=== PATIENT | female | born 2000 | race Caucasian/White ===

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

== ENCOUNTER 2020-05-01 19:01 | Outpatient (REF) | payer BC, SELFPAY ==
[2020-05-03 13:42] LABS: Patient Race White; SARS-CoV-2 RNA Undetected (Undetected); SARS-CoV-2 Specimen Source Nasal
== END 2020-05-01 19:21 ==
LOC: NCHCN 19:01
PROVIDERS: PCP Physician Assistant Medical; Visit Provider Physician Assistant Medical
DX: R09.81 Nasal congestion (principal)
CPT/HCPCS: U0003

== ENCOUNTER 2021-04-04 21:18 | Outpatient (REF) | payer BC, SELFPAY ==
--- NOTE | 2021-04-04 17:00 | PAPFT_PTH ---
PATIENT: Starla Wiggins LOC: NCN #:[id number] AGE/SX: 20/F ROOM: RE04/04/[address]: Zaki Schneider : 2000 BED: DIS: 04/04/2021 SPEC #: [id number] RECD: 04/05/21 13:16 STATUS: DAHLIA REGabe #: [id number] GIANLUCA: 04/04/21 17:[address]: Zaki Schneider DEPT: [facility] Cytology RECD BY: Jennifer Rockwell Tissues: 1 - CX/ENDOCX FOR PAP SMEARS Procedures: PAP THIN PREP/[facility] Screening Comments: [id number]
[2021-04-04 21:15] LABS: Calculated LDL 162 mg/dL (<100); Cholesterol 243 mg/dL (<200); Glucose 83 mg/dL (74-106); HDL Cholesterol 50 mg/dL (40-60); Triglyceride 159 mg/dL (<150)
== END 2021-04-04 21:19 | disposition home or self-care (01) ==
LOC: NCHCN 21:18
PROVIDERS: PCP Physician Assistant Medical; Visit Provider Physician Assistant Medical
DX: Z12.4 Encounter for screening for malignant neoplasm of cervix (principal); Z00.8 Encounter for other general examination
CPT/HCPCS: 80061; 82947; 88142

== ENCOUNTER 2021-06-25 21:29 | Outpatient (REF) | payer BC, SELFPAY ==
[2021-06-25 21:37] LABS: Abs Immature Grans 0.03 10^3/uL (0.0-0.06); Absolute Basophil Count 0.07 10^3/uL (0.0-0.2); Absolute Lymphocyte Count 3.39 10^3/uL (1.2-3.4); Basophils % 0.5; Eosinophils % 4.8; HCT 35.5 % (36.0-46.0); Immature Grans % 0.2; Lymphocytes % 24.8; MCH 29.5 pg (27.0-33.0); MCHC 33.8 % (32.0-36.0); MCV 87.2 fL (80-95); MPV 10.3 fL (8.0-11.0); Monocytes % 7.2; Neutrophils % 62.5; Nucleated RBC 0 %; Platelet Count 433 10^3/uL (130-400); RBC 4.07 10^6/uL (3.93-5.22); RDW 13.2 % (11.7-14.6); RDW-SD 39.7 fL; WBC 13.66 10^3/uL (4.4-10.8)
[2021-06-25 21:46] LABS: ALT 19 U/L (14-59); AST 13 U/L (15-37); Alkaline Phosphatase 110 U/L (46-116); Anion Gap 10.3 mmol/L (3-11); BUN 7 mg/dL (7-18); Bilirubin, Total 0.2 mg/dL (0.2-1.0); CO2 24.7 mmol/L (21.0-32.0); CREATININE 0.9 mg/dL (0.55-1.02); Calcium 9.6 mg/dL (8.5-10.1); Chloride 103 mmol/L (98-107); Glucose 79 mg/dL (74-106); Potassium 4.2 mmol/L (3.5-5.1); Sodium 138 mmol/L (136-145); Total Protein 7.8 g/dL (6.4-8.2)
[2021-06-25 21:48] LABS: Absolute Eosinophil Count 0.66 10^3/uL (0.0-0.7); Absolute Monocyte Count 0.98 10^3/uL (0.1-0.8); Absolute Neutrophil Count 8.54 10^3/uL (1.2-6.7)
== END 2021-06-25 21:30 | disposition home or self-care (01) ==
LOC: LBN 21:29
PROVIDERS: PCP Physician Assistant Medical; Visit Provider Family Medicine
DX: U07.1 COVID-19 (principal)
CPT/HCPCS: 80053; 85025

== ENCOUNTER 2021-06-26 12:42 | Outpatient (CLI) | payer BC, SELFPAY ==
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
== END 2021-06-26 13:02 ==
PROVIDERS: PCP Physician Assistant Medical; Visit Provider Family Medicine
DX: U07.1 COVID-19 (principal); J98.4 Other disorders of lung
CPT/HCPCS: 71046

== ENCOUNTER 2023-02-12 20:14 | Outpatient (REF) | payer BC, SELFPAY ==
[2023-02-12 20:58] LABS: Source Nasal/Nares
[2023-02-12 21:52] LABS: COVID-19 PCR Negative (Negative)
== END 2023-02-12 20:15 | disposition home or self-care (01) ==
LOC: LBN 20:14
PROVIDERS: PCP Physician Assistant Medical; Visit Provider Physician Assistant Medical
DX: J02.9 Acute pharyngitis, unspecified (principal); Z20.822 Contact with and (suspected) exposure to COVID-19
CPT/HCPCS: 87635; 87070

== ENCOUNTER 2023-09-03 23:03 | Emergency (ER) | payer BC, SELFPAY ==
[2023-09-03] VITALS (53 sets, daily range): BP systolic 107–156; BP diastolic 58–87; PULSE 80–117; RESP 11–30; TEMP 36.7; O2SAT 90–100
--- NOTE | 2023-09-03 23:00 | RT.EKG_ITS ---
APPROVED REPORT Exam: Resting ECG Reason for Exam: chest pain Patient Location: E HR:103 bpm ECG Measurements Heart Rate 103 AXIS WV 161 P 41 QRSd 86 QRS 72 QT 357 T -11 QTc 467 Conclusion Sinus tachycardia 103 normal intervals no stemi
[2023-09-03] MEDS: Ketorolac 10 MG TAB PO (23:26)
[2023-09-03] MEDS: ALPRAZolam 0.5 MG TAB 1 MG PO (23:26)
--- NOTE | 2023-09-03 23:27 | ED.GENADUL_ITS ---
Discharge Plan Disposition Patient Disposition: Home Condition: Stable Discharge Details Clinical Impression: Chest pain Primary Care Provider: Zaki Schneider ED Provider: Jean Burnett Home Meds and New Rx's Prescriptions: No Action atomoxetine 25 mg capsule PO Patient Comments: TAKE ONE CAPSULE BY MOUTH EVERY MORNING Discharge Instructions Instructions: Chest Pain (ED) Additional Instructions: monitor symptoms and if there is significant worsening follow up with your PCP or return to the ED HPI General Date/Time Provider Initiated Documentation: 09/03/23 23:16 . Limitations to Documentation: no limitations . Information obtained by: patient . HPI Narrative: 23-year-old female with past medical history of anxiety presents for evaluation of chest pain. Reports acute onset pain about 1 hour ago. Pain substernal and pressure. Not associated with nausea, diaphoresis or significant shortness of breath. Has never had pain like this before. Denies hormone use, does not smoke, no history of early cardiac . No recent surgeries or long travel Related Data Home Medications Medication Instructions Recorded Confirmed atomoxetine 25 mg capsule mg PO 09/03/23 Allergies Allergy/AdvReac Type Severity Reaction Status Date / Time animal dander Allergy Intermediate Runny Unverified 09/03/23 23:15 nose, watery eyes house dust Allergy Intermediate Sneezy,Itch Unverified 09/03/23 23:15 y mold Allergy Intermediate Congestion, Unverified 09/03/23 23:15 Itchy General Stated Complaint: Chest Pain DORINA: 3 Exam Narrative Exam Narrative: Review of Systems: All systems reviewed & are unremarkable except as noted in HPI and below Well-developed, no acute distress NCAT PERRL, normal conjunctiva RRR, no murmur no chest wall tenderness Unlabored respiratory effort, CTAB Nondistended abdomen Extremities w/o deformity, no cyanosis, no edema No rashes or lesions. no focal neurologic deficits anxious, tearful Course Vital Signs Vital signs: Vital Signs Temperature 36.7 C 09/03/23 23:06 Pulse 112 H 09/03/23 23:06 Respiratory Rate 20 09/03/23 23:06 Blood Pressure 156/87 H 09/03/23 23:06 Pulse Oximetry 100 09/03/23 23:06 Temperature 36.7 C 09/03/23 23:06 Pulse 112 H 09/03/23 23:06 Respiratory Rate 20 09/03/23 23:10 Respiratory Effort Short of Breath 09/03/23 23:10 Respiratory Depth Normal 09/03/23 23:10 Respiratory Pattern Normal 09/03/23 23:10 Blood Pressure 156/87 H 09/03/23 23:06 Pulse Oximetry 100 09/03/23 23:06 Pain Level 2 09/03/23 23:06 Medical Decision Making Emergent evaluation of chest pain. Patient denies no risk factors for ACS. Her EKG does not demonstrate concerning changes. Have a low suspicion for cardiac chest pain. She is PERC negative and low risk Wells. She does not want an IV and I do not feel that blood work would be beneficial at this time. Will give medication and reassess some improvement with initial meds. Reporting a more esophageal type pain now. Reports it, comes and goes. Still does not want lab work. GI medications given. She did report some relief after this. On reassessment. She states she is ready to go home now. I think that this is a safe plan. Patient is able to go home. In good condition. Strict return precautions advised. Recommended close follow-up with PCP. Medical Records Medical records reviewed: Yes I reviewed the patient's medical records. Lab Data Lab results reviewed: Yes I reviewed the patient's lab results. Quality:SDOH Health Related Social Needs: No Data to Display [facility] All Active Problems (Updated 09/04/23 @ 00:38 by Jean Burnett MD) Chest pain (Acute) Sprain of cervical neck (Acute) Social History Smoking/Tobacco Use Status: Never Smoking risk assessment performed?: Yes Drug use: Daily Substance use type: marijuana Do you feel safe at home: Yes PAWSS Have you Been Recently Intoxicated or Drunk Within the Last 30 days?: No Have you Ever Experienced Previous Episodes of Alcohol Withdrawal?: No Have you ever Experienced Withdrawal Seizures?: No Have you ever Experienced Delirium Tremens(DT)s?: No Have you ever undergone Alcohol Rehabilitation Treatment (i.e, inpt ot outpatient treatment programs)?: No Have you ever Experienced Blackouts?: No Have you ever Combined Alcohol with other Downers within the last 90 days?: No Have you ever Combined Alcohol with any other Substance of Abuse during the last 90 days?: No Positive Blood Alcohol level on Presentation? [PCS.BAL]: No Evidence of Increased Autonomic Activity (i.e. HR>120, tremor, sweating, agitation, nausea)?: No Result: 0
[2023-09-04] VITALS: RESP 21; O2SAT 100
[2023-09-04 00:01] VITALS: BP 97/57; PULSE 80; RESP 22; O2SAT 100
[2023-09-04 00:02] VITALS: RESP 22; O2SAT 100
[2023-09-04 00:03] VITALS: RESP 20; O2SAT 100
[2023-09-04 00:04] VITALS: RESP 21; O2SAT 100
[2023-09-04] MEDS: Famotidine 20 MG TAB 40 MG PO (00:06)
[2023-09-04] MEDS: Lidocaine 2% Viscous 15 ML CUP (00:07)
== END 2023-09-04 00:45 | disposition home or self-care (01) ==
LOC: ER 09-04 01:11
PROVIDERS: Emergency Provider Emergency Medicine; PCP Physician Assistant Medical
DX: R07.9 Chest pain, unspecified (principal)
CPT/HCPCS: 93005; 99283; 93010

== ENCOUNTER 2023-12-18 16:32 | Emergency (ER) | payer OTHER, SELFPAY ==
[2023-12-18 16:33] VITALS: BP 124/89; PULSE 101; RESP 16; TEMP 36.5
[2023-12-18 17:01] VITALS: BP 125/68; PULSE 88; RESP 16; O2SAT 99
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
== END 2023-12-18 17:11 | disposition home or self-care (01) ==
PROVIDERS: Emergency Provider Emergency Medicine; PCP Physician Assistant Medical
DX: O26.891 Other specified pregnancy related conditions, first trimester (principal); S13.9XXA Sprain of joints and ligaments of unspecified parts of neck, initial encounter; V43.52XA Car driver injured in collision with other type car in traffic accident, initial encounter; Z3A.10 10 weeks gestation of pregnancy
CPT/HCPCS: 99283

== ENCOUNTER 2025-01-06 14:58 | Outpatient (CLI) | payer BC, SELFPAY ==
--- NOTE | 2025-01-06 14:57 | DI.RAD_ITS ---
Exam(s) XR LUMBAR SPINE COMPLETE EXAM: XR LUMBAR SPINE COMPLETE CLINICAL HISTORY: MIDLINE LBP W L SIDED SCIATICA, M54.42. TECHNIQUE: 2D digital imaging was performed. COMPARISON: No exams were available for comparison FINDINGS: Five views No evidence of fracture nor listhesis nor pars defects. There is mild-moderate disc space narrowing at L5-S1 level. Other disc spaces exhibit normal height. Mild facet arthropathy is noted L5-S1 level. Sacroiliac joints appear unremarkable. There is no scoliosis. No IUD is noted in the pelvis. Bone density normal. No osseous lesions IMPRESSION: Mild disc space narrowing at L5-S1 level. DATA REPOSITORY: RADIATION DOSE DELIVERED:
== END 2025-01-06 15:18 ==
PROVIDERS: PCP Physician Assistant Medical; Visit Provider Family Medicine
DX: M54.42 Lumbago with sciatica, left side (principal); M51.27 Other intervertebral disc displacement, lumbosacral region
CPT/HCPCS: 72110

== ENCOUNTER 2025-03-21 02:02 | Outpatient (CLI) | payer BC, SELFPAY ==
--- NOTE | 2025-03-21 08:05 | DI.MRI_ITS ---
Exam(s) MR LUMBAR SPINE WO EXAM: MR LUMBAR SPINE WO CLINICAL HISTORY: LOW BACK PAIN M54.50. TECHNIQUE: Multiplanar multisequence MRI of the Lumbar spine was performed. COMPARISON: CR XR LUMBAR SPINE COMPLETE from 01/06/2025 FINDINGS: Bones: The last intervertebral disc space is designated the L5/S1 level for the numbering purpose of this examination. The vertebral body heights are well maintained. Alignment is satisfactory. The signal characteristics are unremarkable. Cord: It is of normal size and signal intensity. T12-L1: No disc herniations or bulges are present. No central spinal canal or neural foraminal stenosis. L1-2: No disc herniations or bulges are present. No central spinal canal or neural foraminal stenosis. L2-3: No disc herniations or bulges are present. No central spinal canal or neural foraminal stenosis. L3-4: No disc herniations or bulges are present. No central spinal canal or neural foraminal stenosis. L4-5: There is a left paracentral disc herniation with extrusion posterior to the L5 vertebral body. There is left lateral recess stenosis and compression of the left L5 nerve root. There is mild narrowing of the central spinal canal. There is no significant neural foraminal stenosis. L5-S1: There is a mild diffuse disc bulge. No significant central spinal canal stenosis is seen. There is mild extension into the neural foramen bilaterally. There is very mild narrowing of the neural foramen bilaterally. There is no significant central spinal canal stenosis. Soft tissues: The visualized SI joints and sacrum are well maintained. The paraspinal soft tissues are unremarkable. IMPRESSION: 1. 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 There is mild narrowing of the central spinal canal. 2. Degenerative changes with a diffuse disc bulge at L5-S1 causing mild bilateral neural foraminal narrowing. No significant central spinal canal stenosis is seen at this level. DATA REPOSITORY:
== END 2025-03-21 02:22 ==
LOC: DI 02:03
PROVIDERS: PCP Physician Assistant Medical; Visit Provider Physician Assistant Medical
DX: M51.27 Other intervertebral disc displacement, lumbosacral region (principal)
CPT/HCPCS: 72148

== ENCOUNTER 2025-05-16 10:49 | Outpatient (CLI) | payer BC, SELFPAY ==
[2025-05-16 10:54] VITALS: BP 120/83; PULSE 96; RESP 20; TEMP 37; O2SAT 99
--- NOTE | 2025-05-16 11:21 | PDOC.PAIN ---
Date of service: 05/16/25 Time of Service: 11:55 Pain Managment Procedure Note Procedure Note Procedure Note: Lumbar Interlaminar Epidural Steroid Injection ? Location: L4-5 ? Pre-procedure Diagnosis: M54.16- Radiculopathy, LUMBAR region ? Post-procedure Diagnosis:? The same as above ? Sedation:? ? None ? Medication: Depo-Medrol 80 mg, Omnipaque 1 mL ? Estimated blood loss:? less than 2 ml ? Surgeon:? Roni Cox MD COMMENT: Patient with back pain to left lower extremity.Left paracentral disc herniation at L4-5 causing left lateral recess stenosis and compression of the left L5 nerve root. ? Procedure Detail:? The procedure and potential risks were explained to the patient and informed written consent was obtained. The patient was escorted to the procedure room and placed in the prone position. Pillows were utilized for proper positioning and comfort. Time out was performed in the procedure room with nursing staff confirming the patient's identity, procedure to be performed, allergies, and any blood thinning or anti-platelet medications.? The patient's low back was prepped with ChloraPrep and draped in a sterile fashion. Sterile technique was maintained throughout the procedure.? Sterile gloves were used, a face mask was worn, and new single dose vials of all medications were used with the top being swabbed with alcohol and given time to dry prior to withdrawal of medication. Lidocane 1% was used to anesthetize the skin.Using a 25-gauge 1.5 inch needle, 1% lidocaine was instilled into the superficial soft tissue overlying the targeted area to provide local anesthesia. With fluoroscopic guidance, a 517 -gauge Tuohy needle was advanced toward the interlaminar space of L4-5. The needle was then advance through the ligamentum flavum and into the posterior epidural space using the loss of resistance technique. Correct needle placement was confirmed through review of the AP and lateral fluoroscopic views. Following negative aspiration, 1 ml of Omnipaque 240 contrast was injected which confirmed good flow throughout the epidural space and no evidence of vascular flow or flow into adjacent compartments. Next, following negative aspiration, 1 ml of normal saline and 80mg of Depo-Medrol was injected. The needle was gently removed. The patient tolerated the procedure well and was transported to the recovery area for observation and discharge instructions. Permanent images saved and recorded. PAIN PRE-PROCEDURE 09/09 POST-PROCEDURE 08/09 Plan:? Follow up prn. COMMENT: Repeat as needed. 5 Needle was advanced to hub. Coding Conscious Sedation used for procedure: No CPT Codes: Inj Spine L/S w/Imaging - [id number] ([id number] ~G) Additional Codes: Date of Service () Diagnoses: M54.16- Radiculopathy, LUMBAR region
[2025-05-16 11:49] VITALS: PULSE 87; O2SAT 99
[2025-05-16] MEDS: methylPREDNISolone ACETATE 40 MG/ML VIAL IJ (11:57)
[2025-05-16] MEDS: Epidural Tray 1 EACH MC (11:57)
[2025-05-16] MEDS: Omnipaque 240 MG/ML 50 ML BTL IJ (11:57)
--- NOTE | 2025-05-16 12:01 | DI.RAD_ITS ---
Exam(s) XR PAIN CLINIC LUMBAR SP 2V EXAM: XR PAIN CLINIC LUMBAR SP 2V CLINICAL HISTORY: DX: Lumbar Radiculopathy TECHNIQUE: 2D and realtime digital imaging was performed. CONTRAST MATERIAL: Refer to procedure report. COMPARISON: No exams were available for comparison FINDINGS: Fluoroscopy was provided for Dr. Cox during the performance of a lumbar epidural steroid injection. Please refer to the procedure report for complete details. Ka,r=28.1 mGy IMPRESSION: RADIATION DOSE DELIVERED: 0.0 0.0 0
== END 2025-05-16 10:50 | disposition home or self-care (01) ==
LOC: PC 10:49
PROVIDERS: PCP Physician Assistant Medical; Visit Provider Anesthesiology Pain Medicine
DX: M54.16 Radiculopathy, lumbar region (principal)
CPT/HCPCS: 62323; 72100; J1010; Q9967